=== PATIENT | male | born 1990 | race Caucasian/White ===

== ENCOUNTER 2023-07-29 12:07 | Emergency (ER) | payer SELFPAY ==
[2023-07-29 12:10] VITALS: BP 138/97; PULSE 100; RESP 20; TEMP 36.6; O2SAT 98; BMI 42.3
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
[2023-07-29 14:07] VITALS: O2SAT 98
== END 2023-07-29 14:40 | disposition home or self-care (01) ==
LOC: ED 14:31
PROVIDERS: Emergency Provider Emergency Medicine; Visit Provider Emergency Medicine
DX: S70.02XA Contusion of left hip, initial encounter (principal); Y92.410 Unspecified street and highway as the place of occurrence of the external cause; S50.812A Abrasion of left forearm, initial encounter; S30.811A Abrasion of abdominal wall, initial encounter; V28.49XA Other motorcycle driver injured in noncollision transport accident in traffic accident, initial encounter
CPT/HCPCS: 73502; 99282; A4216

== ENCOUNTER 2024-03-13 07:55 | Emergency (ER) | payer MEDICAID, SELFPAY ==
[2024-03-13 07:56] VITALS: BP 168/104; PULSE 71; RESP 20; TEMP 36.3; O2SAT 100; BMI 39.7
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
[2024-03-13] MEDS: Ondansetron ODT 4 MG Tablet PO (08:29)
[2024-03-13] MEDS: HYDROmorphone 1 MG/ML Syringe IM (08:29)
--- NOTE | 2024-03-13 08:54 | MRI_ITS ---
EXAM: MR LUMBAR SPINE WITHOUT INTRAVENOUS CONTRAST CLINICAL INDICATION: low back pain TECHNIQUE: Multiplanar and multisequence MR images of the lumbar spine without intravenous contrast. COMPARISON: No relevant prior studies available. FINDINGS: VERTEBRAE: Normal. Vertebral body heights are preserved. Normal vertebral bodies and posterior elements. No spondylolisthesis. There is preservation of the normal lumbar lordosis. SPINAL CORD: Normal. Normal position and signal intensity of the conus medullaris. SOFT TISSUES: Normal. DISCS/SPINAL CANAL/NEURAL FORAMINA: L1-L2: Normal. Normal disc height and morphology. Normal spinal canal and lateral recesses. Normal neuroforamina. L2-L3: Normal. Normal disc height and morphology. Normal spinal canal and lateral recesses. Normal neuroforamina. L3-L4: Normal. Normal disc height and morphology. Normal spinal canal and lateral recesses. Normal neuroforamina. L4-L5: Minimal disc space narrowing. Decreased T2 signal intensity related to desiccation. Mild broad-based disc protrusion causes mild compression of the thecal sac. AP dimension of the thecal sac measuring 11 mm. Annular fissure noted. Intact neural foramina. L5-S1: Normal. Normal disc height and morphology. Normal spinal canal and lateral recesses. Normal neuroforamina. 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 Electronically Signed: Denis Kirk MD at 16:37 EDT ,
[2024-03-13 09:02] VITALS: BP 140/99; PULSE 71; RESP 18; O2SAT 96
[2024-03-13] MEDS: predniSONE 20 MG Tablet 60 MG PO (09:52)
[2024-03-13 11:00] VITALS: BP 142/83; PULSE 60; RESP 16; O2SAT 98
[2024-03-13] MEDS: morphine 8 MG/ML Syringe IV ×2 (11:20→14:36)
[2024-03-13] MEDS: Ondansetron 4 MG/2 ML Vial IV (11:20)
[2024-03-13 13:00] VITALS: BP 146/83; PULSE 68; RESP 18; O2SAT 96
[2024-03-13 17:00] VITALS: BP 136/84; PULSE 72; RESP 18; O2SAT 96
[2024-03-13] MEDS: HYDROmorphone 1 MG/ML Syringe IV (17:25)
[2024-03-13 18:01] VITALS: BP 138/92; PULSE 82; RESP 18; TEMP 36.7; O2SAT 98
== END 2024-03-13 18:08 | disposition home or self-care (01) ==
PROVIDERS: Emergency Provider Emergency Medicine; Visit Provider Emergency Medicine
DX: M54.50 Low back pain, unspecified (principal); F17.290 Nicotine dependence, other tobacco product, uncomplicated
CPT/HCPCS: 72148; 96372; 96374; 96375; 96376; 99283; A4216; J2405

== ENCOUNTER 2024-03-15 14:49 | Observation (INO) | payer MEDICAID, SELFPAY ==
[2024-03-15 14:50] VITALS: BP 174/82; PULSE 72; RESP 20; TEMP 36.6; O2SAT 98
[2024-03-15 14:59] VITALS: BMI 39.6
--- NOTE | 2024-03-15 15:10 | EDS_ITS ---
HPI History of Present Illness Chief Complaint: Back Informant: patient Onset/Context/Timing Onset: Days Context: Gradual Onset Timing: Continuous Quality: Sharp Location: Lumbar Current Severity: Severe Maximum Severity: Severe Worsened by: improves with Movement and Bending Relieved by: Medications Associated Symptoms Associated Symptoms: Radiation to Right Leg; Negative for Unable to Ambulate, Unable to Transfer, Urinary Retention, Urinary Incontinence, Constipation or Fecal Incontinence Narrative Narrative: 33-year-old male known L4-5 disc that was seen and diagnosed on Wednesday with an MRI. He followed up with orthopedic spine today Dr. Víctor Estrella. Dr. Cifuentes is really not a surgical intervention but due to patient's pain he thought he needed to be admitted for pain control and further evaluation. He did not think the patient needed to MRI today since he just had one 2 days ago. Patient denies any bowel or bladder incontinence. No weakness. He does now have at times radiation to his right buttock and leg. He has never had back surgery. He did have a back injection about 10 years ago for herniated disc. Denies any fever. No fall or trauma. Prior similar symptoms: Yes Recent Illness/Hospitalization: No PFSH PFSH Medical History Asthma Back complaints Home Medications ?Medication ?Instructions ?Recorded ?Last Taken ?Type albuterol sulfate 90 mcg/actuation 2 puff inhalation Q4-6H PRN 02/17/24 Unknown Rx aerosol inhaler shortness of breath or wheezing #8.5 grams oxycodone-acetaminophen 5 mg-325 1 tab PO Q6H PRN pain 3 days #12 03/13/24 Unknown Rx mg tablet (Percocet) tabs Allergy/AdvReac Type Severity Reaction Status Date / Time Penicillins Allergy Unknown Unknown Verified 03/15/24 14:52 Social History Smoking Status: Current some day smoker tobacco type: e-cigarettes ROS ROS ED ROS Narrative Low back pain. No fever. No incontinence. Review of Systems ROS Unobtainable: Denies due to encephalopathy Constitutional Constitutional ED: Denies chills or fever(s) Eyes Eyes: Denies blurry vision ENT ENT ED: Denies ear pain Cardiovascular Cardiovascular: Denies chest pain Respiratory/Chest Respiratory/Chest: Denies dyspnea Gastrointestinal Gastrointestinal: Denies abdominal pain Genitourinary Genitourinary ED: Denies dysuria or hematuria Musculoskeletal Musculoskeletal: Reports back pain; Denies arthralgias, myalgias or neck pain Integumentary Denies abscess or Abrasions Neurologic Neurologic: Denies headache(s) Psychiatric Psychiatric: Denies anxiety Endocrine Endocrinology: Denies cold intolerance Hematologic/Lymphatic Hematologic/Lymphatic: Denies easy bleeding Allergic/Immunologic Allergic/Immunologic ED: Denies mouth swelling, tongue swelling or urticaria EXAM Physical Exam Narrative Exam Narrative: 33-year-old male complaining of back pain. Vital signs stable afebrile. H EENT exam unremarkable. Neck nontender. Lungs clear to auscultation bilaterally. Heart regular rhythm no murmur. Abdomen soft nontender. Moving all 4 extremities. Neurovascular intact. 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 Dorsi plantarflexion intact. No cauda equina. No saddle anesthesia. Normal medial thigh sensation. Back lower lumbar tenderness. No signs of trauma. No redness or warmth. Neurologically is awake and alert with no focal motor or sensory deficits. Const Vital Signs: 03/15/24 14:50 Temperature 98 F Temperature Source Temporal Pulse Rate 72 Respiratory Rate 20 H Blood Pressure 174/82 H Blood Pressure Mean 112 Pulse Ox 98 Oxygen Delivery Method Room Air Positive well nourished and well developed; Negative for cachectic, contractures or unkempt General Appearance ED: well developed and NAD; Negative for unkempt, cachectic, contractures or pallor Nutritional Appearance: Negative for cachectic HEENT Reports moist mucous membranes Negative for trauma or tenderness Eyes PERRL and EOMs intact bilaterally General Eye ED: Negative for pale conjunctiva, scleral icterus or other Neck no lymphadenopathy, supple and no JVD General: Negative for tenderness Thyroid: Negative for other Chest Wall Chest: Negative for other Resp normal respiratory effort and clear to auscultation bilaterally Effort and Inspection: Negative for pain with movement Auscultation: Negative for rales, rhonchi or wheezes Cardio regular rhythm, S1 normal heart sound, S2 normal heart sound and no murmurs Palpation: Negative for palpable S3 Rate: Negative for bradycardia or tachycardic Rhythm: Negative for abnormal rhythm Bruits: Negative for other GI normal to inspection, nondistended, normoactive bowel sounds, soft to palpation, non-tender, non-distended and no masses Inspection: Negative for abdominal distention Auscultation: Negative for hyperactive bowel sounds Palpation: Negative for tender, guarding, hepatomegaly or rebound tenderness present Back/Spine normal to inspection; Negative for no thoracic nor lumbar tenderness General Back: Negative for CVA tenderness Cervical Spine: Negative for cervical spine tenderness and Negative for paracervical muscle tenderness Thoracic Spine / Upper Back: Negative for paraspinal muscle tenderness Lumbar Spine / Lower Back: straight leg raise negative bilaterally Extremity normal to inspection and no clubbing, cyanosis or edema General Extremety ED: Negative for edema or tenderness General Extremity: Negative for edema Neuro oriented x3 and no sensory deficits noted Sensorium / Orientation: alert; Negative for confused, lethargic or stuporous Motor Exam: strength 5/5 throughout Psych mental status grossly normal Appearance: Negative for unkempt or other Attitude: No agitated and No other Mood & Affect: Negative for depressed, sad or tearful Skin no rashes or lesions noted and no wounds General Skin Exam: Negative for jaundice or pallor Lesions: No lesion noted Rashes: No rashes noted Trauma: Negative for abrasion or puncture Wounds: Negative for wounds noted MDM MDM MDM Narrative Medical decision making narrative: 33-year-old male with known L4-5 disc. Was diagnosed with MRI on Wednesday. He has no acute neurological symptoms. No signs of cauda equina. He saw his orthopedic spine physician today, Dr. Narvaez. He referred him to the ER for pain management admission. I did speak to Dr. Narvaez he is explained to the patient currently is not a surgical candidate. And did not need any additional imaging today.Patient will be treated with IV Dilaudid, Zofran and Toradol. I will speak to the hospitalist about admission. History & Record Review Discussion w/independent historian: Patient and Family Additional record(s) reviewed:: Prior inpatient record, Prior outpatient record, Prior ED visit, Prior labs, No prior records and Other Discharge Plan Triage Chief Complaint: Back ED Provider: Sebastián Garrison Dx/Rx/DC Orders Clinical Impression: Low back pain, Herniated disc Prescriptions: No Action albuterol sulfate 90 mcg/actuation HFA aerosol inhaler 2 puff inhalation Q4-6H PRN (Reason: shortness of breath or wheezing) Qty: 8.5 0RF oxycodone-acetaminophen [Percocet] 5-325 mg tablet 1 tab PO Q6H PRN (Reason: pain) 3 Days Qty: 12 0RF Primary Care Provider: Care Physician,No Primary Referrals: Care Physician,No Primary [Primary Care Provider] - Print Language: Greenlandic Disposition Disposition: Acute Care Hospital [facility]
[2024-03-15] MEDS: Ondansetron 4 MG/2 ML Vial IV (15:23)
[2024-03-15] MEDS: Ketorolac 30 MG/ML Syringe IV (15:23)
--- NOTE | 2024-03-15 15:24 | HP.PCM.HOS_ITS ---
HPI - General General Date of Admission: 03/15/24 Date of Service: 03/15/24 Chief Complaint: back pain HPI Narrative WILLOW DIAMOND, is a 33 M with a PMH as outlined who presents via the ED on 03/15/2024 with a complaint of back pain. He was seen in the ED on Wednesday with back pain; MRI done showed L4-5 disc stenosis. He followed up with orthopedic surgery today and Dr Narvaez of spine surgery thought he could be managed conservatively.. Patient was however in severe pain and was not comfortable going home. He denied any numbness or tingling in his lower extremities, tremors, weakness or any other symptoms. Review of systems was otherwise negative. He did have a back injection about 10 years ago for a herniated disc. Vitals in the ED were BP of 174/82, HI of 72, RR of 20 and temp of 98F. He was saturating at 98% on room air. No imaging was done in ED as he had MRI done just 2 days ago. MRI of the lumbar spine done on 03/13/2024 which showed L4-L5 disc degeneration with mild broad-based disc protrusion resulting in mild spinal stenosis HE is being admitted to be managed for back pain due to herniated disc. [facility] Medical History (Updated 03/15/24 @ 19:10 by Yojana Rushing) Herniated disc Asthma Back complaints Home Medications ?Medication ?Instructions ?Recorded ?Last Taken ?Type albuterol sulfate 90 mcg/actuation 2 puff inhalation Q4-6H PRN 02/17/24 Unknown Rx aerosol inhaler SHORTNESS OF BREATH/WHEEZING #8.5 grams oxycodone-acetaminophen 5 mg-325 1 tab PO Q6H PRN PAIN 3 days #12 03/13/24 Unk nown Rx mg tablet (Percocet) tabs Allergy/AdvReac Type Severity Reaction Status Date / Time Penicillins Allergy Unknown Unknown Verified 03/15/24 14:52 Social History Smoking Status: Current some day smoker tobacco type: e-cigarettes ROS Constitutional Constitutional: Denies anorexia, chills, fatigue, fever(s), malaise or weakness Eyes Eyes: Denies change in vision ENT HEENT: Denies dysphagia, epistaxis or headache(s) Cardiovascular Cardiovascular: Denies chest pain, dyspnea on exertion, edema, lightheadedness, orthopnea, palpitations, paroxysmal nocturnal dyspnea or rapid heart rate Respiratory/Chest Respiratory/Chest: Denies cough, dyspnea, shortness of breath at rest or shortness of breath with exertion Gastrointestinal Gastrointestinal: Denies abdominal pain, coffee ground emesis, nausea or vomiting Musculoskeletal Musculoskeletal: Reports back pain; Denies arthralgias, joint pain or joint swelling Neurologic Neurologic: Denies abnormal gait, abnormal speech, confusion, dizziness, focal weakness, headache(s) or numbness Psychiatric Psychiatric: Denies anxiety Endocrine Endocrinology: Denies change in body appearance Vital Signs Vital Signs Vital Signs: 03/15/24 14:50 Temperature 98 F Temperature Source Temporal Pulse Rate 72 Respiratory Rate 20 H Blood Pressure 174/82 H Blood Pressure Mean 112 Pulse Ox 98 Oxygen Delivery Method Room Air Weight Weight: 325 lb 13.491 oz Body Mass Index (BMI) 39.6 Physical Exam Const alert and oriented x3 Constitutional Narrative: in moderate distress due to the pain General Appearance: cooperative HEENT normocephalic, head/scalp atraumatic, hearing grossly normal bilaterally, moist oral mucous membranes and oropharynx normal Mouth: oral and palatal mucosa normal Eyes PERRL, EOMs intact bilaterally and conjunctivae normal Neck no lymphadenopathy and supple Resp normal respiratory effort, no retractions, no use of accessory muscles and clear to auscultation bilaterally Cardio regular rate, regular rhythm, S1 normal heart sound, S2 normal heart sound and no murmurs GI normal to inspection, nondistended, normoactive bowel sounds, soft to palpation and non-tender Extremity normal to inspection, full ROM and no clubbing, cyanosis or edema Neuro oriented x3, CN's II-XII intact bilaterally, moves all extremities and no focal motor deficits Sensorium / Orientation: awake and alert Motor Exam: strength 5/5 throughout Psych Psych Narrative: in moderate distress due to pain Mood & Affect: anxious Assessment & Plan Assessment/Plan (1) Low back pain: (2) Herniated disc: PLAN: Plan #Severe lower back pain and debility due to herniated disc of L4-5 * admit to med surg under observation. * was seen in the ED 2 days ago o/a of severe back pain. MRI done showed herniated disc of L4-5. * saw Dr Narvaez of spine surgery today in his office in [place]. Patient was told he was not a surgical candidate as this could be managed conservatively. He was however in too much pain to go home * consult PT/OT * PO tylenol, PO oxycodone and IV morphine prn * Po flexeril to help with muscle relaxation * fall precautions * consult pain managemnt as patient says he would like to get a pain shot in his back to help with the pain; that is what has previously helped him in the past. * #Elevated BP * BP was elevated at 174/82 at time of my review * pain is likely a contributory factor * not a known hypertensive. IV hydralazine prn. * If BP remains elevated, will start PO BP meds * DVT prophylaxis; SCDs Charges/Coding Visit Charges Inpatient E&M: 39056 Init Hosp L2
[2024-03-15] MEDS: HYDROmorphone 1 MG/ML Syringe IV (15:25)
--- NOTE | 2024-03-15 15:47 | NURSING ---
MED SURG OBS [facility] INTRACTABLE BACK PAIN, HERNIATED DISC
[2024-03-15 18:41] VITALS: BP 160/80; PULSE 70; RESP 16; TEMP 36.6; O2SAT 98
[2024-03-15 19:07] VITALS: BMI 41.6
[2024-03-15 19:09] VITALS: BP 135/74; PULSE 72; RESP 18; TEMP 36.5; O2SAT 98
[2024-03-15] MEDS: Acetaminophen 325 MG Tablet 650 MG PO (19:54)
[2024-03-15] MEDS: oxyCODONE 5 MG Tablet PO (19:54)
[2024-03-15] MEDS: tiZANidine HCl 2 MG Tablet 4 MG PO (19:54)
[2024-03-15] MEDS: 0.9% Normal Saline (1000mL) 1,000 ML 125 ML IV (19:54)
[2024-03-16 02:45] VITALS: BP 112/58; PULSE 60; RESP 16; TEMP 36.4; O2SAT 98
[2024-03-16] MEDS: oxyCODONE 5 MG Tablet PO ×4 (02:50→20:17)
[2024-03-16] MEDS: Ketorolac 30 MG/ML Syringe IV ×3 (02:50→20:17)
[2024-03-16 07:23] LABS: Absolute Lymphocyte Count 2.78 X10^3/uL (0.83-4.51); Absolute Neutrophil Count 2.5 X10^3/uL (2.0-7.7); Basophil# 0.06 X10^3/uL; Basophil% 0.9 % (0-1); Eosinophil# 0.66 X10^3/uL; Eosinophils% 10.1 % (0-5); Hematocrit 42.9 % (40-54); Hemoglobin 14.3 g/dL (13.0-16.5); Lymphocyte # 2.78 X10^3/ul (0.83-4.51); Lymphocyte % 42.7 % (19-41); Mean Corp Hgb Conc 33.3 g/dL (32-36); Mean Corpuscular Hgb 29.4 pg (27.0-32.0); Mean Corpuscular Volume 88.1 fL (80-94); Mean Platelet Vol. 10.2 fl (6.2-12.0); Monocyte# 0.52 X10^3/uL; NRBC Flagged by Analyzer 0 % (0-5); Neutrophil # 2.48 X10^3/uL (2.7-7.7); Neutrophil % 38.1 % (47-70); Platelet Count 174 K/mm3 (150-450); RBC Distribution Width CV 12.2 % (11.6-14.6); RBC Distribution Width SD 39.3 fl (35.1-43.9); Red Blood Count 4.87 M/mm3 (4.6-6.2); White Blood Count 6.5 K/mm3 (4.4-11.0)
[2024-03-16 08:00] VITALS: RESP 18
[2024-03-16 08:06] LABS: Anion Gap 8 (5-15); BUN 13 mg/dL (7-18); BUN/Creat Ratio 13.5 RATIO (10-20); Calcium,Total 8.7 mg/dL (8.5-10.1); Chloride 107 mmol/L (98-107); Creatinine, Serum 0.96 mg/dL (0.70-1.30); EST Glomerular Filtration Rate 96 mL/min (>60); Est Glom Filt Rate - Afr Amer 116 mL/min (>60); Estimated Creatinine Clearance 169.06 ml/min; Glucose 92 mg/dL (74-106); Potassium 3.9 mmol/L (3.5-5.1); Sodium Level 139 mmol/L (136-145)
[2024-03-16] MEDS: Acetaminophen 325 MG Tablet 650 MG PO (08:36)
[2024-03-16 08:45] VITALS: BP 103/84; PULSE 76; RESP 18; TEMP 36.9; O2SAT 98
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
[2024-03-16] MEDS: tiZANidine HCl 2 MG Tablet 4 MG PO (10:59)
[2024-03-16] MEDS: Acetaminophen 500 MG Tablet 1000 MG PO ×2 (14:41→20:17)
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
[2024-03-16 16:09] VITALS: RESP 18
[2024-03-16 16:24] VITALS: BP 104/70; PULSE 70; RESP 18; TEMP 36.8; O2SAT 98
[2024-03-16 20:15] VITALS: BP 120/62; PULSE 65; RESP 16; TEMP 36.4; O2SAT 98
[2024-03-16] MEDS: cycloBENZAPRine HCl 5 MG TABLET PO (20:17)
[2024-03-16] MEDS: 0.9% Saline Lock 10 ML Syringe IV (20:17)
[2024-03-17] VITALS (8 sets, daily range): BP systolic 105–142; BP diastolic 59–89; PULSE 52–70; RESP 16–18; TEMP 36.4–36.7; O2SAT 93–98; BMI 41.6
[2024-03-17] MEDS: 0.9% Saline Lock 10 ML Syringe IV (02:20)
[2024-03-17] MEDS: Ketorolac 30 MG/ML Syringe IV ×2 (02:21→08:48)
[2024-03-17 07:16] LABS: Absolute Lymphocyte Count 2.64 X10^3/uL (0.83-4.51); Absolute Neutrophil Count 2.5 X10^3/uL (2.0-7.7); Basophil# 0.09 X10^3/uL; Basophil% 1.4 % (0-1); Eosinophil# 0.65 X10^3/uL; Eosinophils% 10.2 % (0-5); Hematocrit 42.8 % (40-54); Hemoglobin 14.5 g/dL (13.0-16.5); Lymphocyte # 2.64 X10^3/ul (0.83-4.51); Lymphocyte % 41.5 % (19-41); Mean Corp Hgb Conc 33.9 g/dL (32-36); Mean Corpuscular Hgb 29.4 pg (27.0-32.0); Mean Corpuscular Volume 86.6 fL (80-94); Mean Platelet Vol. 10.2 fl (6.2-12.0); Monocyte# 0.47 X10^3/uL; Monocyte% 7.4 % (0-10); NRBC Flagged by Analyzer 0 % (0-5); Neutrophil # 2.49 X10^3/uL (2.7-7.7); Neutrophil % 39.2 % (47-70); Platelet Count 169 K/mm3 (150-450); RBC Distribution Width CV 12.1 % (11.6-14.6); RBC Distribution Width SD 38.5 fl (35.1-43.9); Red Blood Count 4.94 M/mm3 (4.6-6.2); White Blood Count 6.4 K/mm3 (4.4-11.0)
[2024-03-17] MEDS: Acetaminophen 500 MG Tablet 1000 MG PO ×2 (08:43→15:37)
[2024-03-17] MEDS: cycloBENZAPRine HCl 5 MG TABLET PO ×2 (08:44→15:37)
[2024-03-17] MEDS: oxyCODONE 5 MG Tablet PO (08:47)
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
[2024-03-17] MEDS: Lactated Ringers 1,000 ML 15 ML IV (12:41)
--- NOTE | 2024-03-17 14:00 | NURSING ---
pt remains off unit
--- NOTE | 2024-03-17 14:15 | RAD_ITS ---
STUDY: X-RAY - LUMBAR SPINE REASON FOR EXAM: Male, 33 years old. L4-L5 EPIDURAL TECHNIQUE: 2 limited intraoperative view(s) of the lumbar spine were obtained. COMPARISON: None Technique: 2 fluoroscopic images, 13 seconds of fluoroscopy, a dose of 10.75 mGY FINDINGS: 2 limited intraoperative C-arm films were performed as the patient has undergone epidural injection by Dr. Aburto. No complications noted RAD/Lumbar Spine 2 or 3 Views IMPRESSION: No intraoperative complications noted during epidural injection at L4-5 Electronically Signed: Nash Black MD at 14:44 EDT ,
[2024-03-17] MEDS: Triamcinolone Acetonide 40 MG/ML Vial (14:22)
--- NOTE | 2024-03-17 15:40 | CASEMGMT ---
RODRIGUEZ CM into pt room, pt just finished with therapy. Pt up indep in halls. Pt ready for dc home. Pt denies any homegoing needs.
--- NOTE | 2024-03-17 15:53 | PCM.OPRPT ---
Problems Associated Problem List Diagnoses (1) Lumbar radiculopathy, acute: (2) Intractable back pain: Report of Operation Date of Procedure: 03/17/24 Pre-Operative Diagnosis: Lumbar radiculopathy, intractable back pain Post-Operative Diagnosis: Lumbar radiculopathy, intractable back pain Surgery/Procedure Performed:: L4-L5 Lumbar Epidural Steroid Injection Surgeon: Deon Aburto occupational health and safety manager: None Type of Anesthesia: Epidural Specimen's removed: None Estimated Blood Loss (mL): None Description of Procedure: PROCEDURE: Lumbar Epidural Steroid Injection? ?LEVEL: L4-L5 TECHNIQUE: Sterile under fluoroscopy, with loss of resistance? ?ANESTHESIA: IV Conscious Sedation ?? INFORMED CONSENT: The procedure, risks, benefits and options were discussed with patient.? There are no contraindications to the procedure.? The patient expressed understanding and agreed to proceed. ?? PROCEDURE TECHNIQUE: ?The patient was admitted to the preoperative area and time out performed.? Vital signs were checked and the patient was moved to the procedure area and placed in the prone position.? Standard monitors were applied.? Sterile prep and draped performed in a regular manner.? The L4-L5 interlaminar space was identified under fluoroscopic guidance.? Local anesthesia was administered using 5ml of Lidocaine 1%, to anesthetize the skin and subcutaneous tissue with 25G needle.? Next a 20G Touhy needle was inserted under fluoroscopic guidance.? Using the loss of resistance technique, the epidural space was identified.? Needle position was confirmed on an AP and lateral views as required.? Contrast material, Omnipaque 2cc, was injected under fluoroscopic guidance and showed appropriate epidurogram and epidural spread.? Negative Blood and CSF aspiration was confirmed. A mixture of 5 cc Bupivacaine 0.25% and 40 mg of Triamcinolone was injected.? The patient tolerated the procedure well.? The needle was removed intact.? The patient was cleansed and a Band-Aid was placed. ? Complications None
--- NOTE | 2024-03-17 16:20 | DCINST_ITS ---
Discharge Instructions Diet Discharge Diet: No restrictions Activity Discharge Activity: May Not Drive (While taking narcotics) Return to work on:: 03/18/24 (Light duty no heavy lifting) Dressing / Incision Call your doctor if you observe: Fever of 101 or Higher, Shortness of breath, Dizziness, Fainting spells, Swelling in the ankles, Chest pain and Increased palpitations (irregular heartbeat) Follow Up Care Test Results: Test results from this visit will be discussed in further detail at your follow- up appointment, if applicable. Discharge Plan Admission Admit Date/Time: 03/15/24 15:34 Attending Provider: Deon Gonsalez Primary Care Provider: Care Physician,No Primary Consulting Providers: Sofiya Faith; Rubia Crystal Discharge Orders/Prescriptions Prescriptions: New cyclobenzaprine 5 mg Tablet 5 mg PO TID PRN (Reason: Back spasm) 4 Days Qty: 12 0RF Continued albuterol sulfate 90 mcg/actuation HFA aerosol inhaler 2 puff inhalation Q4-6H PRN (Reason: SHORTNESS OF BREATH/WHEEZING) Qty: 8.5 0RF oxycodone-acetaminophen [Percocet] 5-325 mg tablet 1 tab PO Q6H PRN (Reason: PAIN ) 3 Days Qty: 12 0RF Referrals / Follow Up: Deon Aburto MD [Med Staff - Active Staff] - Within 3 Months (If necessary) Care Physician,No Primary [Primary Care Provider] - Disposition Disposition (needs filled in before D/C Order can be placed): Home, Self Care
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
== END 2024-03-17 16:53 | disposition home or self-care (01) ==
LOC: ED 15:21 → MS3 18:05
PROVIDERS: Anesthesiology; Admitting Provider Student in an Organized Health Care Education/Training Program; Emergency Provider Emergency Medicine; Referring Provider Student in an Organized Health Care Education/Training Program; Visit Provider Family Medicine
PROC: 3E0S3BZ Introduction of Anesthetic Agent into Epidural Space, Percutaneous Approach (ICD-10-PCS; CPT 62323; principal; 2024-03-17 13:25)
DX: M51.16 Intervertebral disc disorders with radiculopathy, lumbar region (principal); M48.061 Spinal stenosis, lumbar region without neurogenic claudication; F17.290 Nicotine dependence, other tobacco product, uncomplicated; J45.909 Unspecified asthma, uncomplicated; R03.0 Elevated blood-pressure reading, without diagnosis of hypertension
CPT/HCPCS: 62323; 01992; 99284; 36415; 72100; 76000; 80048; 85025; 96361; 96374; 96375; 96376; 97161; 99221; J7030; J7120; A4216; G0378; J2405

== ENCOUNTER 2024-06-15 08:16 | Emergency (ER) | payer MEDICAID, SELFPAY ==
[2024-06-15 08:16] VITALS: BP 152/91; PULSE 83; RESP 14; TEMP 36.6; O2SAT 99; BMI 39.2
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
[2024-06-15 08:47] LABS: Bacteria 0 SEEN /hpf (None Seen); Mucous, Urine 0 SEEN /hpf (<or=2+); Red Blood Cells-Urine 0 SEEN /hpf (0-5); Squamous Epithelial Cells - UA 0 SEEN /hpf (0-5); White Blood Cells 0 SEEN /hpf (0-5)
[2024-06-15 08:53] LABS: Color, Urine Yellow (Yellow); Glucose, Dipstick Normal (Normal); Ketone-Dipstick Negative (Negative); Leukocyte Esterase-Dipstick Negative /ul (Negative); Nitrite-Dipstick Negative (Negative); Occult Blood-Urine Negative /ul (Negative); Protein-Dipstick Negative (Negative); Urine Bilirubin Dipstick Negative (Negative); Urine Clarity Clear (Clear); Urine Urobilinogen Normal (Normal)
[2024-06-15 10:16] VITALS: BP 131/67; PULSE 72; RESP 15; TEMP 36.2; O2SAT 98
[2024-06-15 11:21] VITALS: BP 169/101; PULSE 78; RESP 16; TEMP 36.2; O2SAT 98
== END 2024-06-15 11:23 | disposition home or self-care (01) ==
PROVIDERS: Emergency Provider Emergency Medicine; Visit Provider Emergency Medicine
DX: S30.22XA Contusion of scrotum and testes, initial encounter (principal); W50.1XXA Accidental kick by another person, initial encounter; N50.811 Right testicular pain; F17.290 Nicotine dependence, other tobacco product, uncomplicated
CPT/HCPCS: 76870; 81001; 93976; 99282

== ENCOUNTER 2024-10-09 09:35 | Emergency (ER) | payer MEDICAID, SELFPAY ==
[2024-10-09 09:36] VITALS: BP 155/102; PULSE 88; RESP 16; TEMP 36.2; O2SAT 98; BMI 40.8
--- NOTE | 2024-10-09 09:49 | EDS_ITS ---
HPI History of Present Illness Chief Complaint: Abd Pain [facility] Medical History Spinal stenosis at L4-L5 level Herniated disc Asthma Back complaints Home Medications ?Medication ?Instructions ?Recorded ?Last Taken ?Type albuterol sulfate 90 mcg/actuation 2 puff inhalation Q4-6H PRN 02/17/24 Unknown Rx aerosol inhaler SHORTNESS OF BREATH/WHEEZING #8.5 grams methylprednisolone 4 mg tablets in See Rx Instructions PO PER PKG DIR 05/22/24 Unknown Rx a dose pack (Medrol (Tree)) #21 tabs ondansetron 4 mg disintegrating 4 mg PO Q8H PRN PRN Nausea #10 tabs 10/09/24 Unknown Rx tablet Allergy/AdvReac Type Severity Reaction Status Date / Time Penicillins Allergy Unknown Unknown Verified 06/15/24 08:17 Social History Smoking Status: Current some day smoker tobacco type: e-cigarettes EXAM Physical Exam Const Vital Signs: 10/09/24 09:36 10/09/24 11:04 Temperature 97.2 F L 98.4 F Temperature Source Temporal Oral Pulse Rate 88 60 Respiratory Rate 16 18 Blood Pressure 155/102 H 130/78 H Blood Pressure Mean 119 95 Pulse Ox 98 99 Oxygen Delivery Method Room Air Room Air MDM MDM MDM Narrative Medical decision making narrative: HISTORY OF PRESENT ILLNESS: 33-year-old male presents abdominal pain. Patient states he had sudden onset of noted having bowel movement this morning and severe abdominal pain. Notes pain is all over his abdomen. Denies history abdominal surgery. Notes the pain does radiate to the back. Denies history of kidney stones. Notes nausea, 1 episode of nonbloody nonbilious vomitus. Denies any urinary complaints. Denies chest pain or shortness of breath. REVIEW OF SYSTEMS: Pertinent positives: Abdominal pain, nausea vomiting Pertinent negatives: Urinary complaints, diarrhea or constipation PHYSICAL EXAM: Nursing triage notes reviewed, Vital signs reviewed Constitutional: please see mdm HENT: MMM Eyes: Pupils equal round and reactive to light, Extraocular muscles intact Neck: No stridor, no JVD, full neck ROM Lungs: Clear to auscultation, No wheezing or rales. No increased work of breathing, no conversational dyspnea, no accessory muscle use, no nasal flaring. No respiratory distress noted Heart: Regular rate and rhythm, No murmurs, No rubs and No gallops, 2+ distal pulses (radial, femoral, posterior tibial) in all extremities Abdomen: Soft, diffuse TTP but no rigidity, rebound or guarding, no obvious peritoneal signs, no palpable pulsatile abdominal masses, no auscultated abdominal bruit : No CVAT Extremities: No edema Neuro: No new focal neurological deficits, cranial nerves II through XII intact, 5/5 strength in all present extremities. Intact sensation to light touch in all present extremities, 2+ reflexes bilateral patella tendons. Skin: No rash or lesions noted MEDICAL DECISION MAKING: Chief Complaint: Abdominal pain External records reviewed: Reviewed prior imaging Factors affecting care: None Social determinants of health: drinks alcohol occasionally History obtained from others: Family Consults: none MDM Narrative: The patient was initially hypertensive with a blood pressure 155/102, otherwise afebrile and nontoxic-appearing. Abdomen was diffusely tender without peritoneal signs. No distention, rebound or guarding noted. I considered the following differential diagnosis: AAA, small bowel obstruction, abdominal perforation, appendicitis, pancreatitis, hepatobiliary pathology (acute cholecystitis), mesenteric ischemia, pathology (ie nephrolithiasis, pyelonephritis). I obtained a broad lab and imaging workup to further elucidate etiology of the patient's complaints. I gave 1 L IV fluids, 4 mg IV Zofran, 4 mg of IV morphine as well as 15 mg IV Toradol. ALL IMAGES (IF OBTAINED) HAVE BEEN PERSONALLY REVIEWED AND INTERPRETED BY MYSELF. CT scan of the abdomen pelvis showed no evidence of AAA or acute appendicitis. CBC without leukocytosis, severe anemia, no thrombocytopenia. BMP without evidence of significant electrolyte abnormalities, no anion gap, no acute kidney injury. LFTs show no evidence of hepatobiliary pathology. Lipase is wnl indicating no pancreatic inflammation. Repeat abdominal exam is benign. Patient's blood pressure improved to 130/78. Unclear etiology however does not appear to be life-threatening. Encouraged Tylenol ibuprofen. Give Zofran for nausea control at home. Strict return precaution were discussed and follow-up instructions with GI were given. The patient and/or family, caregivers express understanding. The patient and/or family, caregivers agrees with the plan. Shared decision making: I will have a discussion with the patient and or visitors regarding risk/benefits of further testing or admission. They will be made aware of of the risk/benefits inherent in this decision they will be given the opportunity to voice understanding. Total critical care time today provided was at least 0 minutes. This excludes separately billable procedures. Critical care time (if documented) is secondary to the patient having high probability of clinically significant/life threatening deterioration in the patient's condition which required my urgent intervention. Impression: 1. Acute abdominal pain 2. Acute nausea vomiting Dispo: Discharge home This note was generated with [employer] dictation software. It may contain incorrect words, spelling, and punctuation that were not noted in review of the chart prior to signing. Lab Data Labs: Laboratory Results - last 24 hr 10/09/24 10:08 WBC 7.4 RBC 5.60 Hgb 16.6 H Hct 49.2 MCV 87.9 MCH 29.6 MCHC 33.7 RDW Std Deviation 40.0 RDW Coeff of Jesus 12.5 Plt Count 228 MPV 10.4 Immature Gran % (Auto) 0.400 Neut % (Auto) 54.6 Lymph % (Auto) 24.5 [place] % (Auto) 8.5 Eos % (Auto) 10.8 H Baso % (Auto) 1.2 H Absolute Neuts (auto) 4.1 Absolute Lymphs (auto) 1.82 Nucleated RBC % 0 Sodium 140 Potassium 4.0 Chloride 109 H Carbon Dioxide 26.0 Anion Gap 5 BUN 12 Creatinine 1.02 Estim Creat Clear Calc 161.89 Est GFR (MDRD) Af Amer 108 Est GFR (MDRD) Non-Af 90 BUN/Creatinine Ratio 11.8 Glucose 116 H Calcium 9.3 Total Bilirubin 0.40 AST 31 ALT 80 H Alkaline Phosphatase 85 Total Protein 7.3 Albumin 3.9 Globulin 3.4 Albumin/Globulin Ratio 1.1 Lipase 47 Radiography Diagnostic Testing: Clinical Impression(s) from Imaging Studies Abdomen/Pelvis CT 10/09/24 10:28 IMPRESSION: Hepatomegaly. Diffuse fatty infiltration of the liver. Malrotation of the kidneys. Electronically Signed: Jose Qureshi MD at 10:53 EST , Discharge Plan Triage Chief Complaint: Abd Pain ED Provider: Abelardo Whitney Dx/Rx/DC Orders Instructions: ED Abdominal Pain Unkn Cause Male... Prescriptions: New ondansetron 4 mg tablet,disintegrating 4 mg PO Q8H PRN PRN (Reason: Nausea) Qty: 10 0RF No Action albuterol sulfate 90 mcg/actuation HFA aerosol inhaler 2 puff inhalation Q4-6H PRN (Reason: SHORTNESS OF BREATH/WHEEZING) Qty: 8.5 0RF methylprednisolone [Medrol (Tree)] 4 mg tablets,dose pack See Rx Instructions PO PER PKG DIR Qty: 21 0RF Rx Instructions: PO PER PKG DIR Primary Care Provider: Care Physician,No Primary Referrals: Friend,Jake, DO [Med Staff - Active Staff] - Activity Restrictions/Additional Instructions: Thank you for trusting us with your care today! Your labs images were reassuring. Please take Tylenol (2 pills, 650 mg), ibuprofen (2 pills, 400 mg) every 6 hours as needed for pain and fever control. Please take Zofran as needed for nausea and vomiting Please return to the emergency department if your symptoms change or worsen. Please follow with your primary care physician for further outpatient evaluation and management. Print Language: Citizen Of [place] Disposition Disposition: Home, Self Care Discharge Date/Time: 10/09/24 12:56
[2024-10-09] MEDS: 0.9% Normal Saline (1000mL) 1,000 ML 999 ML IV (10:08)
[2024-10-09] MEDS: Ketorolac 15 MG/ML Vial IV (10:09)
[2024-10-09] MEDS: Ondansetron 4 MG/2 ML Vial IV (10:09)
[2024-10-09] MEDS: Morphine 4 MG/ML Syringe IV (10:10)
[2024-10-09 10:14] LABS: Absolute Lymphocyte Count 1.82 X10^3/uL (0.83-4.51); Absolute Neutrophil Count 4.1 X10^3/uL (2.0-7.7); Basophil# 0.09 X10^3/uL; Basophil% 1.2 % (0-1); Eosinophils% 10.8 % (0-5); Hematocrit 49.2 % (40-54); Hemoglobin 16.6 g/dL (13.0-16.5); Lymphocyte # 1.82 X10^3/ul (0.83-4.51); Lymphocyte % 24.5 % (19-41); Mean Corp Hgb Conc 33.7 g/dL (32-36); Mean Corpuscular Hgb 29.6 pg (27.0-32.0); Mean Corpuscular Volume 87.9 fL (80-94); Mean Platelet Vol. 10.4 fl (6.2-12.0); Monocyte# 0.63 X10^3/uL; Monocyte% 8.5 % (0-10); NRBC Flagged by Analyzer 0 % (0-5); Neutrophil # 4.06 X10^3/uL (2.7-7.7); Neutrophil % 54.6 % (47-70); Platelet Count 228 K/mm3 (150-450); RBC Distribution Width CV 12.5 % (11.6-14.6); White Blood Count 7.4 K/mm3 (4.4-11.0)
--- NOTE | 2024-10-09 10:28 | CT_ITS ---
STUDY: CT ABDOMEN AND PELVIS WITH CONTRAST REASON FOR EXAM: Male, 33 years old. Diffuse abdominal pain RADIATION DOSAGE (If Supplied By Facility): CTDIvol = ( 17.07 ) mGy, DLP = ( 1488.09 ) mGycm TECHNIQUE: Transaxial images were obtained from the dome of the diaphragm to the symphysis pubis without oral contrast. IV 100mL Isovue-370 was administered. Sagittal and coronal images were reconstructed. Individualized dose optimization techniques were used for this CT. COMPARISON: None. FINDINGS: The visualized lung bases are unremarkable. The visualized portions of the heart are within normal limits. There is decreased attenuation of the liver consistent with steatosis. Hepatomegaly. Normal gallbladder and extrahepatic biliary system. Normal spleen. Normal pancreas. Normal bilateral adrenal glands. Mild rotation of both kidneys. The renal pelves face anteriorly more prominent on the left side. No evidence of horseshoe kidney. Normal visualized stomach. Normal small intestine. Normal colon. The appendix is visualized and appears normal. Normal abdominal aorta. Normal inferior vena cava. Normal retroperitoneum. Normal urinary bladder. Normal abdominal wall. Normal osseous structures. CT/Abdomen/Pelvis W IV Cont ONLY IMPRESSION: Hepatomegaly. Diffuse fatty infiltration of the liver. Malrotation of the kidneys. Electronically Signed: Jose Qureshi MD at 10:53 EST ,
[2024-10-09 10:39] LABS: ALB/GLOB Ratio 1.1 RATIO (0.9-2.4); AST(SGOT) 31 U/L (15-37); Alanine Aminotransfer ALT/SGPT 80 U/L (16-61); Albumin, Serum 3.9 g/dL (3.2-5.0); Alkaline Phosphatase 85 U/L (45-117); Anion Gap 5 (5-15); BUN 12 mg/dL (7-18); BUN/Creat Ratio 11.8 RATIO (10-20); Calcium,Total 9.3 mg/dL (8.5-10.1); Chloride 109 mmol/L (98-107); Creatinine, Serum 1.02 mg/dL (0.70-1.30); EST Glomerular Filtration Rate 90 mL/min (>60); Est Glom Filt Rate - Afr Amer 108 mL/min (>60); Estimated Creatinine Clearance 161.89 ml/min; Globulin 3.4 g/dL (2.2-4.2); Glucose 116 mg/dL (74-106); Lipase 47 U/L (13-75); Protein, Total 7.3 g/dL (6.4-8.2); Sodium Level 140 mmol/L (136-145)
--- NOTE | 2024-10-09 11:03 | CM.ED ---
Social Work Reason for visit: No PCP SW entered room and introduced self to patient, patients and two children also at bedside. SW let patient and know that it was noted that patient did not have a PCP, stated they just got their Medicaid active and had an appointments scheduled with a physician. Patients also stated that they just got signed up for WIC and SNAP. Patient and denied any additional needs at this time. No other needs or concerns identified. Geraldine Weinstein, PURCHASING/RECEIVING, DAIRY SPECIALIST
[2024-10-09 11:04] VITALS: BP 130/78; PULSE 60; RESP 18; TEMP 36.9; O2SAT 99
== END 2024-10-09 12:56 | disposition home or self-care (01) ==
PROVIDERS: Emergency Provider Emergency Medicine; Visit Provider Emergency Medicine
DX: R10.9 Unspecified abdominal pain (principal); R11.2 Nausea with vomiting, unspecified; F17.290 Nicotine dependence, other tobacco product, uncomplicated
CPT/HCPCS: 74177; 80053; 83690; 85025; 96361; 96374; 96375; 99283; Q9967; J2405

== ENCOUNTER 2025-04-26 12:44 | Emergency (ER) | payer MEDICAID, SELFPAY ==
[2025-04-26 12:45] VITALS: BP 144/86; PULSE 91; RESP 18; TEMP 36.1; O2SAT 99; BMI 42.7
[2025-04-26 15:13] VITALS: BP 138/66; PULSE 84; RESP 16; TEMP 36.3; O2SAT 100
== END 2025-04-26 15:14 | disposition home or self-care (01) ==
PROVIDERS: Emergency Provider Emergency Medicine; Visit Provider Emergency Medicine
DX: M25.551 Pain in right hip (principal); X58.XXXA Exposure to other specified factors, initial encounter; Y93.01 Activity, walking, marching and hiking; Y92.89 Other specified places as the place of occurrence of the external cause; F17.290 Nicotine dependence, other tobacco product, uncomplicated
CPT/HCPCS: 73502; 99283

== ENCOUNTER 2025-07-09 10:04 | Emergency (ER) | payer MEDICAID, SELFPAY ==
[2025-07-09 10:04] VITALS: BP 143/71; PULSE 68; RESP 16; TEMP 36.9; O2SAT 98; BMI 42.5
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
[2025-07-09 12:08] VITALS: BP 135/76; PULSE 68; RESP 16; TEMP 36.9; O2SAT 98
--- OUTSIDE RECORDS SUMMARY | 2025-07-09 20:14 | XMS RPT_ITS | CCD ---
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 ~ Signed [facility] Work Phone: [phone] [phone] Hospital Discharge instructions Patient Education 02/16/2025 12:25:30 Self-Care for Strains and Sprains Self-Care for Strains and Sprains Most minor strains and sprains can be treated with self-care. Recovering from a strain or sprain may take 6 to 8 weeks. Your self-care goal is to reduce pain and immobilize the injury to speed healing. A sprain injures ligaments (tissue that connects bones to bones). A strain injures muscles or tendons (tissue that connects muscles to bones). Support the injured area Wrapping the injured area provides support for short, necessary activities. Be careful not to wrap the area too tightly. This could cut off the blood supply. Support a wrist, elbow, or shoulder with a sling. Wrap an ankle or knee with an elastic bandage. Tape a finger or toe to the one next to it. Use cold and heat Cold reduces swelling. Both cold and heat reduce pain. Heat should not be used in the initial treatment of the injury. When using cold or heat, always place a thin towel between the pack and your skin. Apply ice or a cold pack 10 to 15 minutes every hour you re awake for the first 2 days. After the swelling goes down, use cold or heat to control pain. Don t use heat late in the day, since it can cause swelling when you re not active. Rest and elevate Rest and elevation help your injury heal faster. Raise the injured area above your heart level. Keep the injured area from moving. Limit the use of the joint or limb. Use medicine Aspirin reduces pain and swelling. (Note: Don t give aspirin to a child 18 or younger unless prescribed by the doctor.) Non-steroidal anti-inflammatory medicines, such as ibuprofen, may reduce pain and swelling, as well. Ask your healthcare provider for advice. When to call your healthcare provider Call your healthcare provider if: The injured joint won t move, or bones make a grating sound when they move You can t put weight on the injured area, even after 24 hours The injured body part is cold, blue, tingling, or numb The joint or limb appears bent or crooked. Pain increases or doesn t improve in 4 days When pressing along the injured area, you notice a spot that is especially painful [id number] [employer]. [address] [place] [address]. All rights reserved. This information is not intended as a substitute for professional medical care. Always follow yourhealthcare professional's instructions. Follow Up Care 02/16/2025 11:30:36 With:Follow up with primary care provider Address:Unknown When:2-4 days [facility] 04-25-2025 Note Discharge Instructions Thank you for allowing [facility] to assist you with your healthcare needs. The following is importantdischarge information regarding your hospital visit. Diagnosis from Today's Visit Strain of foot What to Do Next Instructions from Your Care Team Discharge Return to Work, School, or Sports (Return to Work, School, or Sports) - Ordered -- May return to: work, Return 02/17/2025. Please allow patient to wear comfortable shoes, 02/16/25 12:26:00 EDT Post Acute Orders No qualifying data available. You Need to Schedule the Following Appointments Follow Up with Follow up with primary care provider When:Within 2-4 days Allergies penicillin Medications Please ask your primary doctor or pharmacist before taking any other medication not listed, including over the counter drugs, herbal medications, vitamins and or supplements as they may interact withyour home medications. What How Much When Instructions Last Dose Unchanged dicyclomine (dicyclomine 10 mg oral capsule) 1 cap by mouth Four (4) times a day Duration: 5 Days Unchanged famotidine (Pepcid 40 mg oral tablet) 1 tab(s) by mouth Two (2) times a day Duration: 14 Days Please take this list to your next doctor s visit. Bring all medications you take, including over the counter medications, herbals and other supplements with you to your doctor s visit. Patients and families are reminded to discard old lists and to update any records with all medication providers or retail pharmacies. Education Materials Self-Care for Strains and Sprains Most minor strains and sprains can be treated with self-care. Recovering from a strain or sprain may take 6 to 8 weeks. Your self-care goal is to reduce pain and immobilize the injury to speed healing. A sprain injures ligaments (tissue that connects bones to bones). A strain injures muscles or tendons (tissue that connects muscles to bones). Support the injured area Wrapping the injured area provides support for short, necessary activities. Be careful not to wrap the area too tightly. This could cut off the blood supply. Support a wrist, elbow, or shoulder with a sling. Wrap an ankle or knee with an elastic bandage. Tape a finger or toe to the one next to it. Use cold and heat Cold reduces swelling. Both cold and heat reduce pain. Heat should not be used in the initial treatment of the injury. When using cold or heat, always place a thin towel between the pack and your skin. Apply ice or a cold pack 10 to 15 minutes every hour you re awake for the first 2 days. After the swelling goes down, use cold or heat to control pain. Don t use heat late in the day, since it can cause swelling when you re not active. Rest and elevate Rest and elevation help your injury heal faster. Raise the injured area above your heart level. Keep the injured area from moving. Limit the use of the joint or limb. Use medicine Aspirin reduces pain and swelling. (Note: Don t give aspirin to a child 18 or younger unless prescribed by the doctor.) Non-steroidal anti-inflammatory medicines, such as ibuprofen, may reduce pain and swelling, as well. Ask your healthcare provider for advice. When to call your healthcare provider Call your healthcare provider if: The injured joint won t move, or bones make a grating sound when they move You can t put weight on the injured area, even after 24 hours The injured body part is cold, blue, tingling, or numb The joint or limb appears bent or crooked. Pain increases or doesn t improve in 4 days When pressing along the injured area, you notice a spot that is especially painful [id number] [employer]. [address] [place] [address]. All rights reserved. This information is not intended as a substitute for professional medical care. Always follow yourhealthcare professional's instructions. Additional Information VACCINATE! IT SAVES LIVES! Members of the community who have not yet received the COVID-19 vaccine and would like to receive it can visit one of [facility] vaccine clinics. There are many vaccine clinic locations within the [facility]. For locations and available times, please visit www.gettheshot.coronavirus.[place].gov/. It is important to note that some COVID mobile vaccine clinics are held outdoors and may be canceled in rainy or stormy conditions. To learn more about pediatric vaccinations (ages 5-11), we invite you to visit the [facility] webpage. https://www.[email or web address].org/pages/[email or web address]-Tdcuceevou-Efpee-Bsu stions.htmlTo learn more about the COVID-19 vaccine, we invite you to visit the CDC website for a list of frequently asked questions. https://www.cdc.gov/coronavirus/2019-ncov/vaccines/faq.html [facility] Patient Portal Access Instructions: Stay connected with your healthcare team and access your personal medical information anytime with the [facility] Patient Portal. If you would like a full copy of your medical records please contact the [facility] Medical Records Department Wednesday through Wednesday between 8a.m. and 4:30p.m. Please follow the directions below to access the portal: 1.Access the email account you provided upon registration to the [facility].2.Look for an invitation email from [facility].3.Open the email and access the invitation link: Accept Invitation to [facility]4.Fill in the required stout to create your account. Sign into [email or web address] with your username and password that you created in the above steps to stay up to date. You can then view a summary of results, a summary of your visits, and the ability to download your summaries to your computer or send the information securely to a physician. Remember that your healthcare information is confidential, so carefully consider who you will allow to register on the [facility] Patient Portal for access to your information. You can also access the [facility] Patient Portal on the [employer]. Simply click on Health Records under myWebRoom and then click on the [employer] logo. HOW TO SAFELY DISPOSE OF PRESCRIPTION MEDICATIONS Please use one of the following methods to safely dispose of your unused medications. 1.Use a drug disposal kit: the drug disposal pouch allows you to safely discard your old and unuseddrugs. Ask your nurse to give you one when you are discharged.2.Visit a local take-back location: Many local pharmacies and police departments have programs that collect old and unwanted prescriptiondrugs. Call your local pharmacy or go to http://Novatek.3LM/1B1Gw9u to find one close to you.3.Make use of household items: Use cat litter or old coffee grounds to dispose medications if other options arenot available. Mix your drugs with these household products, seal them in an airtight container andthrow it into the garbage. Call [facility]: [phone] to be sure your drugs can be disposed of in this way. Some medicines may require a different approach.4.Never flush your medications down the toilet. IF YOU HAVE BEEN PRESCRIBED AN OPIOIDS FOR PAIN If you have been prescribed an opioid (such as hydrocodone, oxycodone or morphine), it is critical to understand the possible side effects and risks of opioid pain medications. Even when taken as directed, opioids can have several side effects including: Tolerance, meaning you might need to take more of a medication for the same pain relief. Nausea, vomiting and/or constipation. Sleepiness, dizziness, dry mouth, confusion, depression or itching. Physical dependence, meaning you have withdrawal symptoms when a medication is stopped ? this can develop within a few days. KNOW YOUR RESPONSIBILITIES It is important to know exactly how much and how often to take the opioid pain medications you are prescribed. Never take opioids in higher amounts or more often than prescribed. Do not combine opioids with alcohol or other drugs that cause drowsiness, such as benzodiazepines, also known as benzos,including diazepam and alprazolam, muscle relaxants or sleep aids. Never sell or share prescriptionopioids. This is illegal. Store opioids in a secure place and out of reach of others (including children, family, friends and visitors). The last page(s) of this document has been signed and retained as a CHART COPY Signatures Patient Education Materials Self-Care for Strains and Sprains Medication Leaflets My discharge plan and instructions have been reviewed and explained to me and I,DEVAN DIAMOND my current condition and have read and understand these discharge instructions. I have received a written copy of the plan/instructions. If I have questions, I am aware that I should contact my doctor. 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 HISTORY: ORDERING SYSTEM PROVIDED HISTORY: Reason for Exam: foot pain Lateral foot pain. FINDINGS: There is no evidence of acute fracture. There is normal alignment of the tarsometatarsal joints. No acute joint abnormality. No focal osseous lesion. No focal soft tissue abnormality. IMPRESSION: No acute osseous abnormality. Interpreted by: Tomi Sullivan DO Preliminary Report By: Tomi Sullivan DO Electronically signed By Tomi Sullivan DO Dictated Date: 02/16/2025 12:05:42 PM Prelim Date: 02/16/2025 12:06:16 PM Sign Date: 02/16/2025 12:06:16 PM Ordering Provider: JOSEFA LA [facility]12-21-2024 Hospital Discharge instructions Patient Education 10/14/2024 14:06:01 Abdominal Pain Abdominal Pain Abdominal pain is pain in the stomach or belly area. Everyone has this pain from time to time. In many cases it goes away on its own. But abdominal pain can sometimes be due to a serious problem, such as appendicitis. So it s important to know when to get help. Causes of abdominal pain There are many possible causes of abdominal pain. Common causes in adults include: Constipation, diarrhea, or gas Stomach acid flowing back up into the esophagus (acid reflux or heartburn) Severe acid reflux, called GERD (gastroesophageal reflux disease) A sore in the lining of the stomach or small intestine (peptic ulcer) Inflammation of the gallbladder, liver, or pancreas Gallstones or kidney stones Appendicitis Intestinal blockage An internal organ pushing through a muscle or other tissue (hernia) Urinary tract infections In women, menstrual cramps, fibroids, ovarian cysts, pelvic inflammatory disease, or endometriosis Inflammation or infection of the intestines, including Crohn's disease and ulcerative colitis Irritable bowel syndrome Diagnosing the cause of abdominal pain Your healthcare provider will give you a physical exam help find the cause of your pain. If needed,you will have tests. Belly pain has many possible causes. So it can be hard to find the reason for your pain. Giving details about your pain can help. Tell your provider where and when you feel the pain, and what makes it better or worse. Also let your provider know if you have other symptoms such as: Fever Tiredness Upset stomach (nausea) Vomiting Changes in bathroom habits Blood in the stool or black, tarry stool Weight loss that you can't explain (involuntary weight loss?) Also report any family history of stomach or intestinal problems, or cancers. Tell your provider about all your alcohol use and drug use. Tell your provider about all medicines you use, including herbs, vitamins, and supplements. Treating abdominal pain Some causes of pain need emergency medical treatment right away. These include appendicitis or a bowel blockage. Other problems can be treated with rest, fluids, or medicines. Your healthcare provider can give you specific instructions for treatment or self-care based on what is causing your pain. If you have vomiting or diarrhea, sip water or other clear fluids. When you are ready to eat solid foods again, start with small amounts of wgmt-jb-[id number], low- fat foods. These include apple sauce, toast, or crackers. When to get medical care Call 911 or go to the hospital right away if you: Can t pass stool and are vomiting Are vomiting blood or have bloody diarrhea or black, tarry diarrhea Have chest, neck, or shoulder pain Feel like you might pass out Have pain in your shoulder blades with nausea Have sudden, severe belly pain Have new, severe pain unlike any you have felt before Have a belly that is rigid, hard, and hurts to touch Call your healthcare provider if you have: Pain for more than 5 days Bloating for more than 2 days Diarrhea for more than 5 days A fever of 100.4 F (38 C) or higher, or as directed by your healthcare provider Pain that gets worse Weight loss for no reason Continued lack of appetite Blood in your stool How to prevent abdominal pain Here are some tips to help prevent abdominal pain: Eat smaller amounts of food at each meal. Don't eat greasy, fried, or other high-fat foods. Don't eat foods that give you gas. Exercise regularly. Drink plenty of fluids. To help prevent GERD symptoms: Quit smoking. Reduce alcohol and foods that increase stomach acid. Don't use aspirin or uutf-osa-ygqooqm pain and fever medicines, if possible. This includes nonsteroidal anti-inflammatory drugs (NSAIDs). Lose excess weight. Finish eating at least 2 hours before you go to bed or lie down. Raise the head of your bed. [id number] [employer]. [address] [place] [address], [place] [address]. All rights reserved. This information is not intended as a substitute for professional medical care. Always follow yourhealthcare professional's instructions. Follow Up Care 10/14/2024 12:20:19 With:[facility] Address: [address] [place] [id number]- When:2-4 days With:[facility] Address: [address] [place] [phone] When:2-4 days With:SHIRAZ HE DO Address: [address] [place] [address] [place] [address] [phone] When:2-4 days With:Call Physician Referral Address:Unknown When:2-4 days [facility] 12-21-2024 Note Discharge Instructions Thank you for allowing [facility] to assist you with your healthcare needs. The following is importantdischarge information regarding your hospital visit. What to Do Next Instructions from Your Care Team No qualifying data available. Post Acute Orders No qualifying data available. You Need to Schedule the Following Appointments Follow Up with MEDICAL, CLINIC When:Within 2-4 days Where:[address] [place] [address]- Follow Up with [facility] When:Within 2-4 days Where:[address] [place] [address] [phone] Follow Up with SHIRAZ HE DO When:Within 2-4 days Where:[address] [place] [address] [phone] Follow Up with Call Physician Referral When:Within 2-4 days Allergies penicillin Medications Please ask your primary doctor or pharmacist before taking any other medication not listed, including over the counter drugs, herbal medications, vitamins and or supplements as they may interact withyour home medications. What How Much When Instructions Last Dose New dicyclomine (dicyclomine 10 mg oral capsule) 1 cap by mouth Four (4) times a day Duration: 5 Days Printed Prescription New famotidine (Pepcid 40 mg oral tablet) 1 tab(s) by mouth Two (2) times a day Duration: 14 Days Printed Prescription New ondansetron (ondansetron 4 mg oral tablet, disintegrating) 1 tab(s) by mouth Every 8 hours Duration: 3 Days Printed Prescription Please take this list to your next doctor s visit. Bring all medications you take, including over the counter medications, herbals and other supplements with you to your doctor s visit. Patients and families are reminded to discard old lists and to update any records with all medication providers or retail pharmacies. Education Materials Abdominal Pain Abdominal pain is pain in the stomach or belly area. Everyone has this pain from time to time. In many cases it goes away on its own. But abdominal pain can sometimes be due to a serious problem, such as appendicitis. So it s important to know when to get help. Causes of abdominal pain There are many possible causes of abdominal pain. Common causes in adults include: Constipation, diarrhea, or gas Stomach acid flowing back up into the esophagus (acid reflux or heartburn) Severe acid reflux, called GERD (gastroesophageal reflux disease) A sore in the lining of the stomach or small intestine (peptic ulcer) Inflammation of the gallbladder, liver, or pancreas Gallstones or kidney stones Appendicitis Intestinal blockage An internal organ pushing through a muscle or other tissue (hernia) Urinary tract infections In women, menstrual cramps, fibroids, ovarian cysts, pelvic inflammatory disease, or endometriosis Inflammation or infection of the intestines, including Crohn's disease and ulcerative colitis Irritable bowel syndrome Diagnosing the cause of abdominal pain Your healthcare provider will give you a physical exam help find the cause of your pain. If needed,you will have tests. Belly pain has many possible causes. So it can be hard to find the reason for your pain. Giving details about your pain can help. Tell your provider where and when you feel the pain, and what makes it better or worse. Also let your provider know if you have other symptoms such as: Fever Tiredness Upset stomach (nausea) Vomiting Changes in bathroom habits Blood in the stool or black, tarry stool Weight loss that you can't explain (involuntary weight loss?) Also report any family history of stomach or intestinal problems, or cancers. Tell your provider about all your alcohol use and drug use. Tell your provider about all medicines you use, including herbs, vitamins, and supplements. Treating abdominal pain Some causes of pain need emergency medical treatment right away. These include appendicitis or a bowel blockage. Other problems can be treated with rest, fluids, or medicines. Your healthcare provider can give you specific instructions for treatment or self-care based on what is causing your pain. If you have vomiting or diarrhea, sip water or other clear fluids. When you are ready to eat solid foods again, start with small amounts of fcib-qx-eemeqz, low- fat foods. These include apple sauce, toast, or crackers. When to get medical care Call 911 or go to the hospital right away if you: Can t pass stool and are vomiting Are vomiting blood or have bloody diarrhea or black, tarry diarrhea Have chest, neck, or shoulder pain Feel like you might pass out Have pain in your shoulder blades with nausea Have sudden, severe belly pain Have new, severe pain unlike any you have felt before Have a belly that is rigid, hard, and hurts to touch Call your healthcare provider if you have: Pain for more than 5 days Bloating for more than 2 days Diarrhea for more than 5 days A fever of 100.4 F (38 C) or higher, or as directed by your healthcare provider Pain that gets worse Weight loss for no reason Continued lack of appetite Blood in your stool How to prevent abdominal pain Here are some tips to help prevent abdominal pain: Eat smaller amounts of food at each meal. Don't eat greasy, fried, or other high-fat foods. Don't eat foods that give you gas. Exercise regularly. Drink plenty of fluids. To help prevent GERD symptoms: Quit smoking. Reduce alcohol and foods that increase stomach acid. Don't use aspirin or zmcw-ibd-mscmzdf pain and fever medicines, if possible. This includes nonsteroidal anti-inflammatory drugs (NSAIDs). Lose excess weight. Finish eating at least 2 hours before you go to bed or lie down. Raise the head of your bed. 8735-6923 [employer]. [address] [place] [address]. All rights reserved. This information is not intended as a substitute for professional medical care. Always follow yourhealthcare professional's instructions. Additional Information VACCINATE! IT SAVES LIVES! Members of the community who have not yet received the COVID-19 vaccine and would like to receive it can visit one of [facility] vaccine clinics. There are many vaccine clinic locations within the [facility]. For locations and available times, please visit www.gettheshot.coronavirus.[place].gov/. It is important to note that some COVID mobile vaccine clinics are held outdoors and may be canceled in rainy or stormy conditions. To learn more about pediatric vaccinations (ages 5-11), we invite you to visit the [facility] webpage. https://www.[facility].org/pages/8341-Bsgje-Biasdspmtai-Ytktidhxnf-Gnkcl-Nrb stions.htmlTo learn more about the COVID-19 vaccine, we invite you to visit the CDC website for a list of frequently asked questions. https://www.cdc.gov/coronavirus/2019-ncov/vaccines/faq.html [facility] [employer] Patient Portal Access Instructions: Stay connected with your healthcare team and access your personal medical information anytime with the [facility] Patient Portal. If you would like a full copy of your medical records please contact the [facility] Medical Records Department Wednesday through Wednesday between 8a.m. and 4:30p.m. Please follow the directions below to access the portal: 1.Access the email account you provided upon registration to the [facility].2.Look for an invitation email from [facility].3.Open the email and access the invitation link: Accept Invitation to [email or web address]4.Fill in the required stout to create your account. Sign into [email or web address] with your username and password that you created in the above steps to stay up to date. You can then view a summary of results, a summary of your visits, and the ability to download your summaries to your computer or send the information securely to a physician. Remember that your healthcare information is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
== END 2025-07-09 12:09 | disposition home or self-care (01) ==
PROVIDERS: Emergency Provider Emergency Medicine; Visit Provider Emergency Medicine
DX: S16.1XXA Strain of muscle, fascia and tendon at neck level, initial encounter (principal); F17.290 Nicotine dependence, other tobacco product, uncomplicated; X58.XXXA Exposure to other specified factors, initial encounter
CPT/HCPCS: 72040; 96372; 99282